=== PATIENT | male | born 1950 | race Caucasian/White ===

== ENCOUNTER 2021-09-15 12:25 | Emergency (ER) | payer MEDICARE, OTHER ==
[2021-09-15] VITALS (7 sets, daily range): BP systolic 165–208; BP diastolic 95–128
[~2021-09-15] VITALS: Ht 177.8 cm; Wt 103.0 kg
[~2021-09-15 12:25] MED LIST: ADULT ASPIRIN E81 MG; AMLODIPINE5 MG PO; CLONAZEP ODT0.5 MG PO; CRESTOR20 MG PO; CYMBALTA60 MG PO; GABAPENTIN400 M2 PO; LISINOPRIL40 MG PO; METO50TA52 PO; NITROGLYCERIN0.4 MG; PRILOSEC20 MG PO; SEROQUEL XR50 MG PO; VENTOLIN H108 MCG/AC; VITAMIN D32000 UNIT PO; ZYLOPRIM100 MG PO
== END 2021-09-15 14:05 | disposition home or self-care (01) ==
LOC: ED 12:25
DX: S20.411A Abrasion of right back wall of thorax, initial encounter (principal); W01.190A Fall on same level from slipping, tripping and stumbling with subsequent striking against furniture, initial encounter; I10 Essential (primary) hypertension

== ENCOUNTER 2021-10-07 09:25 | Emergency (ER) | payer MEDICARE, OTHER ==
[~2021-10-07] VITALS: Ht 177.8 cm; Wt 106.8 kg
[2021-10-07 09:32] VITALS: BP 153/98
[2021-10-07 10:18] VITALS: BP 162/83
== END 2021-10-07 12:03 | disposition home or self-care (01) ==
LOC: ED 09:25
DX: M25.512 Pain in left shoulder (principal); I10 Essential (primary) hypertension; W01.0XXA Fall on same level from slipping, tripping and stumbling without subsequent striking against object, initial encounter; Y92.239 Unspecified place in hospital as the place of occurrence of the external cause

== ENCOUNTER 2022-03-23 10:53 | Emergency (ER) | payer MEDICARE, OTHER ==
[~2022-03-23] VITALS: Ht 177.8 cm; Wt 107.0 kg
[2022-03-23] VITALS (15 sets, daily range): BP systolic 141–173; BP diastolic 87–113
--- NOTE | 2022-03-23 11:12 | NUR ---
Pt complained of chest pain on a scale of 9 out of 10. Pt stated "I haven't had my medicine in 4 days." Pt was referring to omeprazole for indigestion. Pt continues to report feeling his heart beat "Thumping in his chest." Vitals obtained 171/91 pulse of 108. Pt verbalized agreement on being checked in the ER for cardiac symptoms. This chief writer walked with PT to ER. Pt ambulated with 2 wheel walker, during ambulation pt kept going towards the right and walking into things. W/C given. Pt stated "Once I get settled I will contact Ashleen." Pt appeared short of breath. ER staff took pt back into ER for testing.
[2022-03-23 11:30] LABS: HEMATOCRIT 44.9 % (39.0-50.0); HEMOGLOBIN 14.8 g/dl (14.0-18.0); IMMATURE GRANULOCYTES 0.3 % (0.0-5.0); MEAN CELL VOLUME 97.8 fL CALC (80.0-100.0); MEAN CORPUSCULAR HGB 32.2 pG CALC (26.0-32.0); NEUT# 8.67 thou/uL (1.82-7.42); RED BLOOD COUNT 4.59 mill/uL (4.70-6.10); RED CELL DISTRI WIDTH 12.8 % (11.5-15.5)
[2022-03-23 11:57] LABS: ALBUMIN 5.2 g/dL (3.2-5.0); ALKALINE PHOSPHATASE 81 u/l (38-126); ANION GAP 18 (6-22 (CALC)); BILIRUBIN, TOTAL 0.4 mg/dL (0.0-1.4); BUN 20 mg/dL (8-23); BUN/CREATININE RATIO 20 (12-20 (CALC)); CARBON DIOXIDE 26 mmol/l (22-30); CHLORIDE 100 mmol/l (95-108); ETHYL ALCOHOL 0 mg/dl (0-30); GFR FOR AFR.AMER. > 60 ML/MIN (>=60 (CALC)); GFR OTHER RACES > 60 ML/MIN (>=60 (CALC)); POTASSIUM 3.9 mmol/l (3.5-5.1); SGOT/AST 28 u/l (19-48); SODIUM 139 mmol/l (137-146); TOTAL PROTEIN 8.6 g/dL (6.3-8.2)
[2022-03-23 13:26] LABS: URINE BILIRUBIN - DIPSTICK NEGATIVE (NEGATIVE); URINE BLOOD DIPSTICK NEGATIVE (NEGATIVE); URINE COLOR YELLOW; URINE GLUCOSE - DIPSTICK NEGATIVE (NEGATIVE); URINE KETONE NEGATIVE (NEGATIVE); URINE LEUK ESTERASE NEGATIVE (NEGATIVE); URINE PROTEIN - DIPSTICK NEGATIVE (NEG-TRACE); URINE SPECIFIC GRAVITY 1.025; URINE UROBILINOGEN - DIPSTICK 0.2 E.U./dL (0.2)
[2022-03-23 13:31] LABS: URINE NITRITE - DIPSTICK NEGATIVE (Negative)
[2022-03-23] MEDS ORDERED: OMEPRAZOLE20 MG PO (14:55)
== END 2022-03-23 15:32 | disposition home or self-care (01) ==
LOC: ED 10:53
PROVIDERS: Emergency Medicine
DX: K21.9 Gastro-esophageal reflux disease without esophagitis (principal); I10 Essential (primary) hypertension; F41.9 Anxiety disorder, unspecified; F32.A Depression, unspecified
CPT/HCPCS: Q9967; S0164